=== PATIENT | male | born 1955 | race Caucasian/White ===

== ENCOUNTER → 2019-06-25 | Outpatient (CLI) | payer MEDICARE, BC ==
--- NOTE | 2019-06-27 11:37 | ECHOF ---
Referral Reason:I48.91 A Fib MEASUREMENTS -------- HEIGHT: 182.9 cm WEIGHT: 117.9 kg BP: RVIDd: 3.1 cm (< 3.3) IVSd: 1.4 cm (0.6 - 1.1) LVIDd: 5.4 cm (3.9 - 5.3) LVPWd: 1.5 cm (0.6 - 1.1) IVSs: 1.3 cm LVIDs: 4.8 cm LVPWs: 1.4 cm LA Diam: 4.4 cm (2.7 - 3.8) LAESV Index (A-L): 30.32 ml/m Ao Diam: 3.6 cm (2.0 - 3.7) AV Cusp: 2.2 cm (1.5 - 2.6) LA Diam: 5.2 cm (2.7 - 3.8) MV EXCURSION: 15.662 mm (> 18.000) MV EF SLOPE: 97 mm/s (70 - 150) EPSS: 0.7 cm MV E Kelvin: 0.90 m/s MV DecT: 174 ms MV A Kelvin: 0.02 m/s MV E/A Ratio: 49.04 RAP: 5.00 mmHg RVSP: 29.09 mmHg FINDINGS -------- Atrial fibrillation. This was a technically adequate study. The left ventricular size is normal. There is borderline concentric left ventricular hypertrophy. Overall left ventricular systolic function is low-normal with, an EF between 50 - 55 %. The right ventricle is normal in size. The left atrium is mildly dilated. LA is midly dilated 29-33ml/m2. The right atrial size is normal. There is mild aortic valve sclerosis. There is no evidence of aortic regurgitation. Mild mitral annular calcification present. Mild mitral regurgitation is present. Mild tricuspid regurgitation present. There is no evidence of pulmonary hypertension. The right v entricular systolic pressure, as measured by Doppler, is 29.09mmHg. There is no pulmonic regurgitation present. The aortic root size is normal. There is no pericardial effusion. CONCLUSIONS -------- 1. The left ventricular size is normal. 2. There is borderline concentric left ventricular hypertrophy. 3. Overall left ventricular systolic function is low-normal with, an EF between 50 - 55 %. 4. The right ventricle is normal in size. 5. The left atrium is mildly dilated. 6. LA is midly dilated 29-33ml/m2. 7. The right atrial size is normal. 8. There is mild aortic valve sclerosis. 9. Mild mitral annular calcification present. 10. Mild mitral regurgitation is present. 11. Mild tricuspid regurgitation present. 12. There is no evidence of pulmonary hypertension. 13. The right ventricular systolic pressure, as measured by Doppler, is 29.09mmHg. 14. There is no pulmonic regurgitation present. 15. The aortic root size is normal. 16. There is no pericardial effusion. [employer] OPERATOR: Daysi Roldan RDCS
== END | disposition home or self-care (01) ==
LOC: RADECHMAIN 14:54
PROVIDERS: ATTEND Internal Medicine
DX: I08.1 Rheumatic disorders of both mitral and tricuspid valves (principal); I48.91 Unspecified atrial fibrillation
CPT/HCPCS: 93306

== ENCOUNTER → 2019-07-31 | Day surgery (SDC) | payer MEDICARE, BC ==
[2019-07-25 12:55] VITALS: BMI 31.6
[~2019-07-31] MED LIST: ALPRAZolam 0.25 MG TAB PO PRN; ALPRAZolam 0.5 MG TAB PO PRN; ASPIRIN 325 MG TAB PO ONE; ATORVASTATIN 80 MG TAB PO ONE; HEPARIN SODIUM 1,000 UN/ML (10ML VL) ONE; IOPAMIDOL-370 100ML BTL INJ ONE; LIDOCAINE 1% INJ 10MG/ML (20 ML MDV) SQ ONE; MIDAZOLAM (PF) 2 MG/2 ML VIAL IV ONE; NITROGLYCERIN SL TABS 0.4 MG TAB SUBLINGUAL PRN; RIVAROXABAN 20 MG TAB PO STA; SODIUM CHLORIDE 0.9% 1,000 ML IV SCH; SODIUM CHLORIDE 0.9% 1,000 ML in EMPTY BAG 1 BAG IV ONE; VERAPAMIL 2.5 MG/ML 2 ML AMP ONE
[2019-07-31 08:24] VITALS: TEMP 97.8
[2019-07-31] MEDS: VERAPAMIL SYRINGE (5 MG/10 ML) INTRAARTER ONE ×2 (09:44→10:01)
[2019-07-31 10:22] VITALS: RESP 16
--- NOTE | 2019-07-31 11:03 | CC ---
CARDIAC CATHETERIZATION REPORT DATE OF SERVICE: 07/31/2019 PROCEDURE: Left heart catheterization and coronary angiography. PERFORMED BY: Dr. Tomas Way. Moderate conscious sedation time was 22 minutes. Patient was administered Versed. His oxygen saturation, hemodynamics and EKG were monitored closely. CLINICAL INFORMATION: Mr. Edwin Melendez is a 63-year-old gentleman with a history of hypertension, hyperlipidemia, and recently diagnosed atrial fibrillation with rate control and on Xarelto 20 mg daily. Because of an abnormal stress test with inferior wall reversible defect. He was advised coronary angiography after due discussion regarding risks, benefits, and options. PROCEDURE NOTE: Under local anesthesia and strict aseptic precautions, a 6-Nepali introducer was placed in the right radial artery. I used a JL3.5 and JR4.0 diagnostic catheters to perform coronary angiography and the same right catheter was used to check LV pressures. LV gram was not performed. The sheath was taken out and a large TR band applied as per protocol with good hemostasis and saturation of the fingers of the right hand was 93%. The patient tolerated procedure well without complications. Results were discussed with the patient and family. CARDIAC CATHETERIZATION FINDINGS: The left ventricular end-diastolic pressure was 14 mmHg without any gradient across the aortic valve. CORONARY ANGIOGRAPHY FINDINGS: RIGHT CORONARY ARTERY: This is technically a dominant vessel of good caliber and distribution. It distally bifurcates into 2 branches and gives off an AV kenyetta branch, which is quite large and runs all the way superiorly. The distal branch of the RCA and RCA itself has about 30% to 35% narrowing without any significant disease. LEFT MAIN CORONARY ARTERY: This is a long vessel. No significant disease. There is mild calcification. It bifurcates into LAD and circumflex. LEFT ANTERIOR DESCENDING CORONARY ARTERY: Good caliber vessel, heavy calcification in the proximal 1/3. Gives off a large diagonal branch. It has minor irregularities. No significant disease. The LAD runs all the way to the apex, curves over the apex to supply the inferoapical portion of left ventricle. The entire LAD system has moderate calcification, but no significant disease. No more than 30% to 35% narrowing noted. LEFT POSTERIOR CIRCUMFLEX CORONARY ARTERY: Technically nondominant vessel gives off a single obtuse marginal that runs laterally, gives of minor irregularities of about 30% to 35%. No significant disease is noted. FINAL IMPRESSION: This patient has left ventricular end-diastolic pressure of 14 mmHg, no gradient across the aortic valve. He has a right dominant system, has calcified coronary arteries 30% to 40% narrowing. No significant disease. LV gram was not performed. RECOMMENDATIONS: Findings were discussed with the patient and family. Continued medical therapy with risk factor modification advised. He will resume Xarelto today and hopefully will be discharged later on today and I will see him early next week in the office. MMODL / IJN: [id number] /
[2019-07-31 16:02] VITALS: BP 134/80; PULSE 53
== END ==
LOC: CATHCVL 07:57
PROVIDERS: ATTEND Internal Medicine Interventional Cardiology
DX: I25.110 Atherosclerotic heart disease of native coronary artery with unstable angina pectoris (principal); I48.91 Unspecified atrial fibrillation; I10 Essential (primary) hypertension; E66.9 Obesity, unspecified; E78.5 Hyperlipidemia, unspecified; Z79.01 Long term (current) use of anticoagulants; Z79.899 Other long term (current) drug therapy; Z68.31 Body mass index [BMI] 31.0-31.9, adult
CPT/HCPCS: 93458; C1769; C1894; J2001; J1644; Q9967; J2250

== ENCOUNTER → 2019-08-28 | Outpatient (CLI) | payer MEDICARE, BC ==
[2019-08-28 11:34] LABS: HCT 41.7 % (39.0-53.0); HGB 13.4 gm/dL (13.0-17.5); MCH 32.4 pg (25.0-35.0); MCHC 32.1 g/dL (31.0-37.0); MCV 100.8 fL (80.0-100.0); Mean Platelet Volume 6.6; Platelet Count 245 k/uL (150-450); RBC 4.14 m/uL (4.30-5.90); RDW 12.6 % (11.5-15.5); WBC 8.8 k/uL (3.8-10.6)
[2019-08-28 11:54] LABS: African American GFR (CKD) >90 (>60 ml/min/1.73 sqM); Anion Gap 10 mmol/L; Blood Urea Nitrogen 19 mg/dL (9-20); Carbon Dioxide 26 mmol/L (22-30); Chloride 103 mmol/L (98-107); Glucose 164 mg/dL (74-99); Potassium 4.4 mmol/L (3.5-5.1); Sodium 139 mmol/L (137-145)
== END | disposition home or self-care (01) ==
LOC: LABPAT 10:57
PROVIDERS: ATTEND Internal Medicine Interventional Cardiology
DX: Z01.812 Encounter for preprocedural laboratory examination (principal); I25.10 Atherosclerotic heart disease of native coronary artery without angina pectoris; I48.91 Unspecified atrial fibrillation
CPT/HCPCS: 36415; 80051; 82565; 82947; 84520; 85027

== ENCOUNTER 2019-08-29 06:10 | Day surgery (SDC) | payer MEDICARE, BC ==
[2019-08-27 10:17] VITALS: BMI 31.6
[~2019-08-29 06:10] MED LIST changes: -ALPRAZolam 0.25 MG TAB PO PRN; -ALPRAZolam 0.5 MG TAB PO PRN; -ASPIRIN 325 MG TAB PO ONE; -ATORVASTATIN 80 MG TAB PO ONE; -HEPARIN SODIUM 1,000 UN/ML (10ML VL) ONE; -IOPAMIDOL-370 100ML BTL INJ ONE; +LACTATED RINGERS 1,000 ML IV SCH; -LIDOCAINE 1% INJ 10MG/ML (20 ML MDV) SQ ONE; -MIDAZOLAM (PF) 2 MG/2 ML VIAL IV ONE; -NITROGLYCERIN SL TABS 0.4 MG TAB SUBLINGUAL PRN; -RIVAROXABAN 20 MG TAB PO STA; -SODIUM CHLORIDE 0.9% 1,000 ML in EMPTY BAG 1 BAG IV ONE; -VERAPAMIL 2.5 MG/ML 2 ML AMP ONE
[2019-08-29 06:39] VITALS: TEMP 97.8
[2019-08-29] MEDS ORDERED: PROPOFOL 10 MG/ML 20 ML VIAL IV ONE (07:10)
[2019-08-29] MEDS ORDERED: LACTATED RINGERS 1,000 ML IV ONE (07:37)
--- NOTE | 2019-08-29 07:53 | CE ---
CARDIAC ELECTROPHYSIOLOGY REPORT ELECTRICAL CARDIOVERSION NOTE: PROCEDURE: Electrical cardioversion. PERFORMED BY: Dr. Tomas Way. CLINICAL INFORMATION: Mr. Edwin Melendez is a 64-year-old gentleman with moderate noncritical CAD and recent onset atrial fibrillation, which appeared to be persistent in spite of oral medications. He was brought in electively after placing him on Xarelto 20 mg daily for a cardioversion. Risks, benefits, options, rationale were explained. PROCEDURE NOTE: Under the influence of ultra short-acting and intravenous anesthetic agent with the attendance of the anesthesiologist, a single 250 joules synchronized shock was delivered with anterior and posterior patches. He converted to sinus rhythm, remained neurologically intact and hemodynamically stable. This was a successful electrical cardioversion. He will be discharged later on today and I will see him in the office in one week. MMODL / JADN: [id number] /
[2019-08-29 08:29] VITALS: PULSE 52
[2019-08-29 08:53] VITALS: BP 121/69; RESP 16
== END 2019-08-29 08:50 | disposition home or self-care (01) ==
LOC: CATHCVL 06:10
PROVIDERS: ATTEND Internal Medicine Interventional Cardiology
DX: I48.91 Unspecified atrial fibrillation (principal); I10 Essential (primary) hypertension; E78.5 Hyperlipidemia, unspecified; E66.9 Obesity, unspecified; Z79.01 Long term (current) use of anticoagulants; Z79.899 Other long term (current) drug therapy; Z68.31 Body mass index [BMI] 31.0-31.9, adult; K21.9 Gastro-esophageal reflux disease without esophagitis
CPT/HCPCS: 93005; 92960; J2704

== ENCOUNTER → 2019-10-09 | Outpatient (CLI) | payer MEDICARE, BC ==
[2019-10-09 15:23] LABS: HCT 37.9 % (39.0-53.0); MCH 33.7 pg (25.0-35.0); MCHC 34.2 g/dL (31.0-37.0); MCV 98.5 fL (80.0-100.0); Platelet Count 260 k/uL (150-450); RBC 3.85 m/uL (4.30-5.90); RDW 12.3 % (11.5-15.5); WBC 9.6 k/uL (3.8-10.6)
[2019-10-09 15:24] LABS: Potassium 4.5 mmol/L (3.5-5.1)
== END | disposition home or self-care (01) ==
LOC: LABPAT 14:07
PROVIDERS: ATTEND Internal Medicine Interventional Cardiology
DX: Z01.812 Encounter for preprocedural laboratory examination (principal); I25.10 Atherosclerotic heart disease of native coronary artery without angina pectoris
CPT/HCPCS: 36415; 80051; 82565; 82947; 84520; 85027

== ENCOUNTER → 2019-10-14 | Day surgery (SDC) | payer MEDICARE, BC ==
[2019-10-10 16:14] VITALS: BMI 31.0
[~2019-10-14] MED LIST changes: +LIDOCAINE 1% INJ 10MG/ML (20 ML MDV) ONE; +PROPOFOL 10 MG/ML 20 ML VIAL IV ONE
[2019-10-14 06:21] VITALS: TEMP 98.2
--- NOTE | 2019-10-14 07:30 | CE ---
CARDIAC ELECTROPHYSIOLOGY REPORT DATE OF SERVICE: 10/14/2019 PROCEDURE: Electrical cardioversion. INDICATION: Persistent atrial fibrillation with previously unsuccessful electrical cardioversion. CLINICAL INFORMATION: Mr. Melendez is a gentleman with a nonischemic cardiomyopathy-type picture, ejection fraction of 45%-50% with evidence of recurrent persistent atrial fibrillation. He had an electrical cardioversion performed in the past, but had a recurrence of atrial fibrillation. He was then placed on amiodarone 200 mg b.i.d. and brought in for the procedure electively. The risks, benefits, options and rationale were explained. PROCEDURE NOTE: Under the influence of ultra short-acting intravenous anesthetic agent with the attendance of the anesthesiologist, a single 250 joule shock was delivered with anterior and posterior patches. Patient converted to sinus rhythm, remained hemodynamically stable and neurologically intact. This was a successful electrical cardioversion. Results were discussed with the patient and family. He will continue his current medical regimen. MMODL / IJN: [id number] /
[2019-10-14 07:35] VITALS: RESP 16
[2019-10-14 08:45] VITALS: BP 117/72; PULSE 54
== END ==
LOC: CATHCVL 05:55
PROVIDERS: ATTEND Internal Medicine Interventional Cardiology
DX: I48.19 Other persistent atrial fibrillation (principal); E78.2 Mixed hyperlipidemia; I10 Essential (primary) hypertension; I25.10 Atherosclerotic heart disease of native coronary artery without angina pectoris; K21.9 Gastro-esophageal reflux disease without esophagitis; E66.9 Obesity, unspecified; Z68.31 Body mass index [BMI] 31.0-31.9, adult; Z79.01 Long term (current) use of anticoagulants; Z79.899 Other long term (current) drug therapy
CPT/HCPCS: 92960; J2001; J2704

== ENCOUNTER → 2022-09-29 | Outpatient (CLI) | payer MEDICARE, BC ==
--- NOTE | 2022-09-29 10:36 | XR ---
EXAMINATION TYPE: XR chest 2V DATE OF EXAM: 09/29/2022 10:24 AM COMPARISON: None TECHNIQUE: XR chest 2V Frontal and lateral views of the chest. CLINICAL INDICATION:Male, 67 years old with history of I48.91 A FIB; FINDINGS: Lungs/Pleura: There is no evidence of pleural effusion, focal consolidation, or pneumothorax. Pulmonary vascularity: Unremarkable. Heart/mediastinum: Cardiomediastinal silhouette is unremarkable. Musculoskeletal: No acute osseous pathology. IMPRESSION: No acute cardiopulmonary disease/process.
[2022-09-29 17:32] LABS: HCT 39.5 % (39.6-50.0); MCHC 32.9 g/dL (32.0-37.0); MCV 103.4 fL (80.0-97.0); Mean Platelet Volume 10.5 fL (9.5-12.2); NRBC Per 100 WBC 0 /100 WBCS (0.0-0.0); Platelet Count 328 X 10*3/uL (140-440); RBC 3.82 X 10*6/uL (4.40-5.60); RDW 11.8 % (11.5-14.5); WBC 10.17 X 10*3/uL (4.50-10.00)
[2022-09-29 17:59] LABS: African American GFR (CKD) 83.5 (60.0-200.0); Albumin 4.3 g/dL (3.8-4.9); Albumin/Globulin Ratio 1.76 (1.60-3.17); Anion Gap 10.4 mmol/L (10.00-18.00); BUN/Creat Ratio 15.33 Ratio (12.00-20.00); Blood Urea Nitrogen 16.1 mg/dL (9.0-27.0); Calcium 9.4 mg/dL (8.7-10.3); Globulin 2.4 g/dL (1.6-3.3); Non-African American GFR(CKD) 72.1 (60.0-200.0); Potassium 4.9 mmol/L (3.5-5.5); T4, Free (Free Thyroxine) 1.31 ng/dL (0.800-1.800); Total Bilirubin 0.7 mg/dL (0.30-1.20); Total Protein 6.7 g/dL (6.2-8.2)
== END | disposition home or self-care (01) ==
LOC: LABWHC1 09:51
PROVIDERS: ATTEND Internal Medicine Clinical Cardiac Electrophysiology
DX: I48.91 Unspecified atrial fibrillation (principal); I42.9 Cardiomyopathy, unspecified
CPT/HCPCS: 36415; 71046; 80053; 84439; 84443; 85027

== ENCOUNTER 2022-10-31 07:55 | Day surgery (SDC) | payer MEDICARE, BC ==
[2022-10-27 10:08] VITALS: BMI 30.4
[~2022-10-31 07:55] MED LIST changes: +DEXAMETHASONE SOD PHOSPHATE 4 MG/ML 1 ML VIAL IV ONE; +HYDROmorphone 0.5 MG/0.5 ML SYRINGE IVP PRN; -LIDOCAINE 1% INJ 10MG/ML (20 ML MDV) ONE; +ONDANSETRON 4 MG/2 ML VIAL IVP ONE; -PROPOFOL 10 MG/ML 20 ML VIAL IV ONE
[2022-10-31] MEDS ORDERED: SODIUM CHLORIDE 0.9% 1,000 ML IV ONE (08:24)
[2022-10-31 08:39] LABS: Basophils # (A) 0.1 k/uL (0-0.2); Basophils % (A) 1 %; Eosinophils # (A) 0.3 k/uL (0-0.7); Eosinophils % (A) 4 %; HCT 38.9 % (39.0-53.0); HGB 13.6 gm/dL (13.0-17.5); Lymphocytes # (A) 2.1 k/uL (1.0-4.8); Lymphocytes % (A) 24 %; MCH 34.2 pg (25.0-35.0); MCHC 34.9 g/dL (31.0-37.0); MCV 97.9 fL (80.0-100.0); Mean Platelet Volume 7.6; Monocytes # (A) 0.5 k/uL (0-1.0); Monocytes % (A) 6 %; Neutrophils # (A) 5.5 k/uL (1.3-7.7); Neutrophils % (A) 64 %; Platelet Count 272 k/uL (150-450); RBC 3.97 m/uL (4.30-5.90); RDW 11.5 % (11.5-15.5); WBC 8.6 k/uL (3.8-10.6)
[2022-10-31 08:59] LABS: African American GFR (CKD) >90 (>60 ml/min/1.73 sqM); Anion Gap 6 mmol/L; Blood Urea Nitrogen 15 mg/dL (9-20); Calcium 9.1 mg/dL (8.4-10.2); Carbon Dioxide 27 mmol/L (22-30); Chloride 107 mmol/L (98-107); Glucose 118 mg/dL (74-99); Non-African American GFR(CKD) >90 (>60 ml/min/1.73 sqM); Potassium 4.2 mmol/L (3.5-5.1); Sodium 140 mmol/L (137-145)
[2022-10-31] MEDS ORDERED: LIDOCAINE 2% INJ 20 MG/ML (2 ML VIAL) ONE (10:02)
[2022-10-31] MEDS ORDERED: MIDAZOLAM 2 MG/2 ML VIAL ONE (10:02)
[2022-10-31] MEDS ORDERED: SUCCINYLCHOLINE CHLORIDE 200 MG/10 ML VIAL IV ONE (10:02)
[2022-10-31] MEDS ORDERED: PHENYLEPHRINE-0.9% NACL SYG 1,000 MCG/10 ML SYRINGE ONE (10:02)
[2022-10-31] MEDS ORDERED: fentaNYL (PF) 50 MCG/ML 2 ML AMP ONE (10:02)
[2022-10-31] MEDS ORDERED: HEPARIN SODIUM,PORCINE 10,000 UNIT/ML 1 ML VIAL ONE (10:02)
[2022-10-31] MEDS ORDERED: PROPOFOL 10 MG/ML 20 ML VIAL IV ONE (10:02)
[2022-10-31] MEDS ORDERED: HEPARIN SOD,PORK IN 0.45% NACL 25,000 UNIT in 0.45% NACL 1 250ML.BAG IV ONE (10:30)
[2022-10-31] MEDS ORDERED: LIDOCAINE 1% INJ 10MG/ML (30 ML VIAL-PF) SQ ONE (10:45)
[2022-10-31] MEDS ORDERED: IOPAMIDOL-370 100ML BTL MISCELLANE ONE (12:10)
[2022-10-31] MEDS ORDERED: ACETAMINOPHEN TAB 325 MG TAB PO PRN (12:52)
--- NOTE | 2022-10-31 13:01 | P.HPCAR ---
History of Present Illness This is Dr. Ray dictating an H/P on this patient The patient was interviewed and examined IMPRESSION / ASSESSMENT: Persistent atrial fibrillation since 2019 Failed medical treatment and electrical cardioversions Complains of palpitations tightness fatigue and shortness of breath Mild cardiomyopathy ejection fraction 45% Normal stress test PLAN: A. fib ablation with PVI and linear ablation of the left atrium Continue Xarelto Reassess LV function after 6-8 weeks of ablation HPI Patient continues to complain of palpitations and tiredness and fatigue He also complains shortness of breath His symptoms have persisted despite adequate rate control of atrial fibrillation In the last one to 2 weeks there is no orthopnea PND chest discomfort last of consciousness or dizziness No fever chills ROS: No fever chills or rigors, no cough, phlegm or expectoration, no nausea, vomiting or diarrhea, no hematuria, dysuria, no musculoskeletal complaints, no strokes or seizures, no skin lesions. EXAMINATION: Afebrile 97.2F blood pressure 144/90 and his mercury pulse ox 96% Breath sounds are reduced bilaterally No JVD. No lower extremity edema line rhythm is irregular no murmurs REVIEW OF LABS, ECG & MEDICAL DATA White count 13.6 Normal electrolytes Normal renal function Physical Exam Vitals: Vital Signs Temp Pulse Resp BP Pulse Ox 10/31/22 08:30 97.2 F L 75 16 144/90 96 Intake and Output 10/30/22 10/31/22 10/31/22 22:59 06:59 14:59 Intake Total 826 Balance 826 Intake: IV 826 Other: Weight 113.3 kg Past Medical History Past Medical History: Atrial Fibrillation, GERD/Reflux, Hyperlipidemia, Hypertension Additional Past Medical History / Comment(s): SEE DR RAY'S H&P History of Any Multi-Drug Resistant Organisms: None Reported Past Surgical History: Heart Catheterization, Orthopedic Surgery Additional Past Surgical History / Comment(s): "Hiatal hernia balloon procedure." Bilateral shoulder surgery. Past Anesthesia/Blood Transfusion Reactions: No Reported Reaction Past Psychological History: No Psychological Hx Reported Smoking Status: Never smoker Past Alcohol Use History: Occasional Past Drug Use History: None Reported - Past Family History Father Family Medical History: Cancer Additional Family Medical History / Comment(s): Lung Cancer. Physical Examination Vital Signs Temp Pulse Resp BP Pulse Ox 10/31/22 08:30 97.2 F L 75 16 144/90 96 Intake and Output 10/30/22 10/31/22 10/31/22 22:59 06:59 14:59 Intake Total 826 Balance 826 Intake: IV 826 Other: Weight 113.3 kg Results 10/31/22 08:25 10/31/22 08:25 CBC 10/31/22 Range/Units 08:25 WBC 8.6 (3.8-10.6) k/uL RBC 3.97 L (4.30-5.90) m/uL Hgb 13.6 (13.0-17.5) gm/dL Hct 38.9 L (39.0-53.0) % Plt Count 272 (150-450) k/uL Comprehensive Metabolic Panel 10/31/22 Range/Units 08:25 Sodium 140 (137-145) mmol/L Potassium 4.2 (3.5-5.1) mmol/L Chloride 107 (98-107) mmol/L Carbon Dioxide 27 (22-30) mmol/L BUN 15 (9-20) mg/dL Creatinine 0.82 (0.66-1.25) mg/dL Glucose 118 H (74-99) mg/dL Calcium 9.1 (8.4-10.2) mg/dL Current Medications Generic Name Dose Route Start Last Admin Trade Name Freq PRN Reason Stop Dose Admin Acetaminophen 650 mg 10/31/22 12:52 Acetaminophen Tab 325 Mg Tab PO Q6HR PRN Mild Pain (Scale 1 to 3) Atorvastatin Calcium 40 mg 11/01/22 09:00 Atorvastatin 40 Mg Tab PO DAILY [facility] Lisinopril/HCTZ 1 each 11/01/22 09:00 Lisinopril-Hctz 20-25 Mg 1 Each Tab PO DAILY LUBNA Hydromorphone HCl 0.5 mg 10/31/22 06:28 Hydromorphone 0.5 Mg/0.5 Ml Syringe IVP 10/31/22 23:00 Q5M PRN Phase 1 or 2 - Pain Control Acetaminophen 1,000 mg/ IV 100 mls @ 400 mls/hr 10/31/22 12:52 Solution IVPB 10/31/22 13:06 ONCE ONE Pantoprazole Sodium 40 mg 11/01/22 07:30 Pantoprazole 40 Mg Tablet PO AC-BRKFST LUBNA Rivaroxaban 20 mg 10/31/22 21:00 Rivaroxaban 20 Mg Tab PO HS LUBNA Protocol Sodium Chloride 12 ml 10/31/22 12:52 Sodium Chloride 0.9% Flush 10 Ml Syringe IV Q12HR PRN Line Flush Intake and Output 10/30/22 10/31/22 10/31/22 22:59 06:59 14:59 Intake Total 826 Balance 826 Intake: IV 826 Other: Weight 113.3 kg Patient Weight 11/01/22 06:59 Weight 113.3 kg 10/31/22 08:25 10/31/22 08:25
--- NOTE | 2022-10-31 13:05 | P.EPPROC ---
- EP Procedure Note Electrophysiology Procedure Note: PROCEDURE A. fib ablation with PVI, left atrial septal ablation and left atrial roof ablation DIAGNOSIS Persistent Atrial fibrillation, symptomatic, refractory to therapy RESULT No left atrial appendage mass seen on intracardiac echo Successful A. fib ablation/pulmonary vein isolation of all veins using cryo- ablation Complete entrance block in all 4 veins confirmed No evidence for phrenic nerve injury Left atrial septal ablation Left atrial roof ablation, linear Esophageal deflection YES, left-sided esophagus Electrical cardioversion with a synchronized shock across the chest YES PROCEDURE DETAILS Patient was brought to the EP lab in a fasting state after obtaining written i nformed consent. Procedure performed under general anesthesia Esophagus was intubated. Esophageal temperature monitoring with circa catheter. Esophageal deflection with an endoscope to avoid hypothermia of the esophagus. After initial muscle relaxant use, muscle relaxants were not given thereafter in order to assess phrenic nerve during procedure. Patient prepped and draped as per protocol Cryo ablation-set up with standard preparation of the cryoablation tools done. Femoral Venous access obtained on the right and left groins and sheaths placed Diagnostic catheters for the high right atrium, phrenic nerve stimulation and pacing, His bundle, coronary sinus placed Intracardiac echo catheter placed. Long sheath placed in the right atrium Left and right transseptal catheterization performed under intracardiac echo guidance. Intravenous heparin with aCT above 300 Later, catheter positioning and balloon positioning in the left atrium and pulmonary veins, under intracardiac echo guidance Diagnostic EP study with coronary sinus pacing and recording Baseline measurements: QRS 96 ms, QT 433 ms, PA interval 195 ms HV 37 ms Transseptal catheterization performed RA pressure 16/12/14 LA pressure 18/11/15 Transseptal catheterization performed with standard sheath. The cryoablation sheath was then placed with an over the wire exchange without any acute complications. The cryoablation balloon was placed in the office of each pulmonary vein and all 4 pulmonary veins were isolated. IV dye was injected to confirm occlusion. Goal: achieve complete occlusion of the pulmonary vein, achieve -30 degrees C at 30 seconds and achieve -40 degrees C at 60 seconds and a time to effect of less than 60 seconds. If not, the balloon was repositioned to obtain this result After completion of Cryoblation with durations from 180-240 seconds, entrance block was confirmed with the Attain circular catheter in a roving fashion around the antrum of the pulmonary veins Phrenic nerve pacing was performed from the SVC, right innominate vein area and diaphragm voltage was monitored. Diaphragmatic contractions were also monitored manually for strength of contraction. At the end of the procedure the Achieve catheter was once again used to check for entrance block Phrenic nerve stimulation was performed to confirm diaphragmatic stimulation the end of the procedure Cine fluoroscopy was performed at the very end of the procedure to confirm movement of both diaphragms with inspiration and expiration Left atrial septal ablation was performed and termination in electrograms amplitude noted, significant Left atrial roof ablation performed with cryptic was cryoablation lesions, overlapping At the end of the procedure the patient was extubated Venous sheaths were removed and hemostasis assured with a closure device PROCEDURES PERFORMED Diagnostic EP study CS pacing and recording Left and right transseptal catheterization Catheter the mapping of the tachycardia Intracardiac echocardiography Pulmonary vein isolation with transseptal and comprehensive EPS, [id number] Left atrial roof line, +[id number] Linear ablation, left atrium, +[id number] Electrical cardioversion with a synchronized shock across the chest [id number]
[2022-10-31] MEDS: ACETAMINOPHEN IV (For NPO) 1,000 MG in EMPTY BAG 1 BAG IVPB ONE ×2 (13:29→13:58)
[2022-10-31] MEDS ORDERED: RIVAROXABAN 20 MG TAB PO SCH (21:00)
[2022-11-01] MEDS ORDERED: PANTOPRAZOLE 40 MG TABLET PO SCH (07:30)
[2022-11-01 08:07] VITALS: BP 148/86; PULSE 74; RESP 17; TEMP 98.1
[2022-11-01] MEDS ORDERED: LISINOPRIL-HCTZ 20-25 MG 1 EACH TAB PO SCH (09:00)
[2022-11-01] MEDS ORDERED: ATORVASTATIN 40 MG TAB PO SCH (09:00)
--- NOTE | 2022-11-01 11:03 | P.DS ---
Providers Attending physician: Mello Ray Primary care physician: Stated None Hospital Course: Patient is resting comfortably in bed Minimum groin tenderness Mild sore throat They mild chest discomfort on deep inspiration Looks comfortable in no distress Heart sounds S1 and S2 are normal Breath sounds are clear No JVD No hematoma in the groins Impression persistent symptomatically atrial fibrillation with associated cardiomyopathy Status post A. fib ablation with pulmonary vein isolation, left atrial roof ablation and left atrial septal ablation yesterday Doing well maintains sinus rhythm On anticoagulation Suggest Continue antihypertensive therapy Continue xarelto Continue statins Follow-up with Dr. Way in about a week on November 08 Plan - Discharge Summary Discharge Rx Participant: No New Discharge Prescriptions: No Action Rivaroxaban [Xarelto] 20 mg PO HS Lisinopril-Hctz 20-25 mg [Zestoretic 20-25] 1 tab PO DAILY Atorvastatin [Lipitor] 40 mg PO DAILY Omeprazole 20 mg PO DAILY Metoprolol Tartrate 25 mg PO DAILY Discharge Medication List Atorvastatin [Lipitor] 40 mg PO DAILY 07/25/19 [History] Lisinopril-Hctz 20-25 mg [Zestoretic 20-25] 1 tab PO DAILY 07/25/19 [History] Metoprolol Tartrate 25 mg PO DAILY 07/25/19 [History] Omeprazole 20 mg PO DAILY 07/25/19 [History] Rivaroxaban [Xarelto] 20 mg PO HS 07/25/19 [History]
== END 2022-11-01 12:10 | disposition home or self-care (01) ==
LOC: CATHEP 07:55 → 6NMEDSUR 12:40 → CATHEP 11-01 12:10
PROVIDERS: ATTEND Internal Medicine Clinical Cardiac Electrophysiology
DX: I48.0 Paroxysmal atrial fibrillation (principal); E78.5 Hyperlipidemia, unspecified; I10 Essential (primary) hypertension; I42.9 Cardiomyopathy, unspecified; I48.91 Unspecified atrial fibrillation; K21.9 Gastro-esophageal reflux disease without esophagitis; R07.89 Other chest pain; Z79.01 Long term (current) use of anticoagulants; Z79.899 Other long term (current) drug therapy; Z80.1 Family history of malignant neoplasm of trachea, bronchus and lung
CPT/HCPCS: 92960; 93656; 93657; 80048; 85025; C1894 ×2; C1769 ×3; C1760; C1730 ×2; C1759; C1893; C1733; C1766; J2250; J0330; J1644 ×2; J2001 ×2; J3010; J0131; J2370; J2704; Q9967

== ENCOUNTER → 2025-04-09 | Outpatient (CLI) | payer MEDICARE, BC ==
[2025-04-09 10:16] LABS: HCT 24.6 % (39.6-50.0); HGB 7.2 g/dL (13.0-17.0); MCH 23.2 pg (27.0-32.0); MCHC 29.3 g/dL (32.0-37.0); MCV 79.1 FL (80.0-97.0); Mean Platelet Volume 9.2 FL (9.5-12.2); NRBC Per 100 WBC 0 X 10*3/uL (0.00-0.01); Platelet Count 389 X 10*3/uL (140-440); RBC 3.11 X 10*6/uL (4.40-5.60); RDW 15.3 % (11.5-14.5); WBC 8.45 X 10*3/uL (4.50-10.00)
[2025-04-09 16:35] LABS: Blood Urea Nitrogen 18.8 mg/dL (9.0-27.0); Carbon Dioxide 24.1 mmol/L (21.6-31.8); Chloride 97 mmol/L (96-109); Sodium 133 mmol/L (135-145)
== END | disposition home or self-care (01) ==
LOC: LABPAT 08:16
PROVIDERS: ATTEND Internal Medicine Clinical Cardiac Electrophysiology
DX: Z01.812 Encounter for preprocedural laboratory examination (principal); I48.19 Other persistent atrial fibrillation
CPT/HCPCS: 80051; 82565; 84520; 85027

== ENCOUNTER 2025-04-13 07:40 | Day surgery (SDC) | payer MEDICARE, BC ==
[2025-04-09 14:36] VITALS: BMI 33.5
[~2025-04-13 07:40] MED LIST changes: -DEXAMETHASONE SOD PHOSPHATE 4 MG/ML 1 ML VIAL IV ONE; -HYDROmorphone 0.5 MG/0.5 ML SYRINGE IVP PRN; -ONDANSETRON 4 MG/2 ML VIAL IVP ONE; -SODIUM CHLORIDE 0.9% 1,000 ML IV SCH
[2025-04-13] MEDS ORDERED: SODIUM CHLORIDE 0.9% 1,000 ML IV SCH (08:13)
[2025-04-13 08:18] VITALS: RESP 16; TEMP 97.9
[2025-04-13 08:43] LABS: ALT 30 U/L (4-49); AST 34 U/L (17-59); African American GFR (CKD) 74 (>60 ml/min/1.73 sqM); Albumin 4.2 g/dL (3.5-5.0); Alkaline Phosphatase 78 U/L (38-126); Anion Gap 10 mmol/L; Blood Urea Nitrogen 24 mg/dL (9-20); Calcium 9.3 mg/dL (8.4-10.2); Carbon Dioxide 26 mmol/L (22-30); Chloride 94 mmol/L (98-107); Glucose 123 mg/dL (74-99); Non-African American GFR(CKD) 64 (>60 ml/min/1.73 sqM); Sodium 130 mmol/L (137-145); Total Bilirubin 0.9 mg/dL (0.2-1.3)
[2025-04-13] MEDS ORDERED: PROPOFOL 10 MG/ML 20 ML VIAL IV ONE (09:21)
[2025-04-13] MEDS: IV FLUID CONTINUATION 500 ML IV ONE (09:41)
--- NOTE | 2025-04-13 09:58 | P.HPCAR ---
History of Present Illness This is Dr. Ray dictating an H/P on this patient The patient was interviewed and examined IMPRESSION / ASSESSMENT: Persistent symptomatic atrial fibrillation with tiredness and fatigue Status post A-fib ablation in 2021 with PVI, left atrial roof ablation and septal ablation Mild to moderate mitral regurgitation Mild aortic stenosis Lexiscan Cardiolite stress test did not show any evidence for ischemia Preserved systolic function during atrial fibrillation Started on flecainide 100 mg twice daily, asked to continue anticoagulation PLAN: Electrical cardioversion on flecainide Reassessment of metoprolol dose Continue antihypertensive therapy and statins and anticoagulation HPI Patient continues to complain of tiredness and fatigue and lack of energy. No dizziness no loss of consciousness no chest pain Remains in atrial fibrillation ROS: No fever chills or rigors, no cough, phlegm or expectoration, no nausea, vomiting or diarrhea, no hematuria, dysuria, no musculoskeletal complaints, no strokes or seizures, no skin lesions. EXAMINATION: Blood pressure 140/73 mmHg respiration 16 pulse rate in the 60s afebrile Heart sounds irregular rates are controlled Breath sounds are clear No rhonchi no crackles REVIEW OF LABS, ECG & MEDICAL DATA Sodium 130 potassium 5.0 BUN 24 creatinine 1.2 Liver function normal TSH normal at 2.3 Physical Exam Vitals: Vital Signs Temp Pulse Resp BP Pulse Ox 04/13/25 08:16 97.9 F 67 16 140/73 96 Intake and Output 04/12/25 04/13/25 04/13/25 22:59 06:59 14:59 Intake Total 300 Balance 300 Intake: IV 300 Other: Weight 126 kg Past Medical History Past Medical History: Atrial Fibrillation, GERD/Reflux, Hyperlipidemia, Hypertension Additional Past Medical History / Comment(s): SEE DR RAY'S H&P History of Any Multi-Drug Resistant Organisms: None Reported Past Surgical History: Heart Catheterization, Orthopedic Surgery Additional Past Surgical History / Comment(s): "Hiatal hernia balloon procedure." Right shoulder surgery. Afib ablation Past Anesthesia/Blood Transfusion Reactions: No Reported Reaction Additional Past Anesthesia/Blood Transfusion Reaction / Comment(s): No hx of blood transfusion Smoking Status: Never smoker - Past Family History Father Family Medical History: Cancer Additional Family Medical History / Comment(s): Lung Cancer. Physical Examination Vital Signs Temp Pulse Resp BP Pulse Ox 04/13/25 08:16 97.9 F 67 16 140/73 96 Intake and Output 04/12/25 04/13/25 04/13/25 22:59 06:59 14:59 Intake Total 300 Balance 300 Intake: IV 300 Other: Weight 126 kg Results 04/13/25 08:00 Cardiac Enzymes 04/13/25 Range/Units 08:00 AST 34 (17-59) U/L Comprehensive Metabolic Panel 04/13/25 Range/Units 08:00 Sodium 130 L (137-145) mmol/L Potassium 5.0 (3.5-5.1) mmol/L Chloride 94 L (98-107) mmol/L Carbon Dioxide 26 (22-30) mmol/L BUN 24 H (9-20) mg/dL Creatinine 1.15 (0.66-1.25) mg/dL Glucose 123 H (74-99) mg/dL Calcium 9.3 (8.4-10.2) mg/dL AST 34 (17-59) U/L ALT 30 (4-49) U/L Alkaline Phosphatase 78 (38-126) U/L Total Protein 7.0 (6.3-8.2) g/dL Albumin 4.2 (3.5-5.0) g/dL Current Medications Generic Name Dose Route Start Last Admin Trade Name Freq PRN Reason Stop Dose Admin Lactated Ringer's 1,000 mls @ 20 mls/hr 04/13/25 06:29 Lactated Ringers IV 05/13/25 06:28 .Q24H LUBNA Sodium Chloride 1,000 mls @ 20 mls/hr 04/13/25 08:13 Saline 0.9% IV 05/13/25 08:12 .Q24H LUBNA Intake and Output 04/12/25 04/13/25 04/13/25 22:59 06:59 14:59 Intake Total 300 Balance 300 Intake: IV 300 Other: Weight 126 kg Patient Weight 04/14/25 06:59 Weight 126 kg 04/13/25 08:00
--- NOTE | 2025-04-13 10:11 | P.EPPROC ---
- EP Procedure Note Electrophysiology Procedure Note: Diagnosis Persistent symptomatic atrial fibrillation Previous history of A-fib ablation in 2021 with PVI and left atrial roof ablation Procedure Successful electrical cardioversion to sinus rhythm in the 50s Plan Continue flecainide 100 mg twice daily, continue Xarelto Continue antihypertensive therapy Stop metoprolol tartrate Start metoprolol succinate 25 mg in the morning Follow-up with Dr. Ray in 6 weeks
[2025-04-13 19:19] VITALS: BP 126/67; PULSE 61
== END 2025-04-13 11:13 | disposition home or self-care (01) ==
LOC: CATHEP 07:40
PROVIDERS: ATTEND Internal Medicine Clinical Cardiac Electrophysiology
DX: I48.19 Other persistent atrial fibrillation (principal); E78.5 Hyperlipidemia, unspecified; I10 Essential (primary) hypertension; Z79.01 Long term (current) use of anticoagulants
CPT/HCPCS: 92960; 80053; 84443; J2704

== ENCOUNTER 2025-06-18 08:56 | Inpatient (IN) | payer MEDICARE, BC ==
[2025-06-18 09:50] LABS: Basophils # (A) 0.05 10*3/uL (0.00-0.10); Basophils % (A) 0.6 %; Eosinophils # (A) 0.19 10*3/uL (0.04-0.35); Eosinophils % (A) 2.3 %; Lymphocytes # (A) 1.91 10*3/uL (0.90-5.00); Lymphocytes % (A) 23.1 %; MCH 22.5 pg (27.0-32.0); MCHC 30.7 g/dL (32.0-37.0); MCV 73.3 fL (80.0-97.0); Monocytes # (A) 0.77 10*3/uL (0.20-1.00); Monocytes % (A) 9.3 %; Neutrophils # (A) 5.33 10*3/uL (1.80-7.70); Neutrophils % (A) 64.3 %; Platelet Count 373 10*3/uL (140-440); RBC 2.62 10*6/uL (4.40-5.60); RDW 16.8 % (11.5-14.5); WBC 8.28 10*3/uL (4.50-10.00)
[2025-06-18 09:55] LABS: HCT 19.2 % (39.6-50.0); HGB 5.9 g/dL (13.0-17.0)
[2025-06-18 10:00] LABS: INR 0.9 (<1.2); Partial Thromboplastin Time 22.1 sec (22.0-30.0); Prothrombin Time 10.5 sec (10.0-12.5)
--- NOTE | 2025-06-18 10:03 | ED ---
Recheck HPI - General Chief Complaint: Recheck/Abnormal Lab/Rx Stated Complaint: Abn Labs Time Seen by Provider: 06/18/25 09:10 Source: patient Mode of arrival: EMS Limitations: no limitations - History of Present Illness Initial Comments: 69-year-old male who presents to the emergency department under the direction of his heart doctor. Patient was supposed to have a heart cath today. He had laboratory testing done yesterday. They called him today to let him know that his hemoglobin was low when he had to come to the hospital. Patient admits that in the past he was diagnosed with iron deficiency but he has not taken his iron supplements in a significant period of time. He also admits to some darker stools a couple of weeks ago. He does admit that he has been short of breath and weak for several months and this is why they are doing the heart cath. He denies having any chest pain. Patient does take Xarelto for history of A-fib. He denies any abdominal pain. No hematuria. No other alleviating, precipitating or modifying factors. - Related Data Home Medications Medication Instructions Recorded Confirmed Atorvastatin [Lipitor] 40 mg PO DAILY 07/25/19 06/18/25 Lisinopril-Hctz 20-25 mg 1 tab PO DAILY 07/25/19 06/18/25 [Zestoretic 20-25] Omeprazole 20 mg PO DAILY 07/25/19 06/18/25 Rivaroxaban [Xarelto] 20 mg PO HS 07/25/19 06/18/25 Metoprolol Succinate [Metoprolol 25 mg PO DAILY 06/16/25 06/18/25 Succinate ER] Aspirin 81 mg PO ONCE 06/18/25 06/18/25 Flecainide Acetate [Tambocor] 50 mg PO BID 06/18/25 06/18/25 Ubidecarenone [Coenzyme Q10] 200 mg PO DAILY 06/18/25 06/18/25 Allergies Allergy/AdvReac Type Severity Reaction Status Date / Time No Known Allergies Allergy Verified 06/18/25 11:18 Review of Systems ROS Statement: Those systems with pertinent positive or pertinent negative responses have been documented in the HPI. ROS Other: All systems not noted in ROS Statement are negative. Past Medical History Past Medical History: Atrial Fibrillation, GERD/Reflux, Hyperlipidemia, Hypertension Additional Past Medical History / Comment(s): SEE DR JACKSON'S H&P History of Any Multi-Drug Resistant Organisms: None Reported Past Surgical History: Heart Catheterization, Orthopedic Surgery Additional Past Surgical History / Comment(s): "Hiatal hernia balloon procedure." Right shoulder surgery. Cardioversion March 2025 Past Anesthesia/Blood Transfusion Reactions: No Reported Reaction Additional Past Anesthesia/Blood Transfusion Reaction / Comment(s): No hx of blood transfusion Past Psychological History: No Psychological Hx Reported Smoking Status: Never smoker Past Alcohol Use History: None Reported Past Drug Use History: None Reported - Past Family History Father Family Medical History: Cancer Additional Family Medical History / Comment(s): Lung Cancer. General Exam Limitations: no limitations General appearance: alert, in no apparent distress Head exam: Present: atraumatic, normocephalic, normal inspection Eye exam: Present: normal appearance, PERRL, EOMI. Absent: scleral icterus, conjunctival injection, periorbital swelling ENT exam: Present: normal exam, mucous membranes moist Neck exam: Present: normal inspection. Absent: tenderness, meningismus, lymphadenopathy Respiratory exam: Present: normal lung sounds bilaterally. Absent: respiratory distress, wheezes, rales, rhonchi, stridor Cardiovascular Exam: Present: regular rate, normal rhythm, normal heart sounds. Absent: systolic murmur, diastolic murmur, rubs, gallop, clicks GI/Abdominal exam: Present: soft, normal bowel sounds. Absent: distended, tenderness, guarding, rebound, rigid Extremities exam: Present: normal inspection, full ROM, normal capillary refill. Absent: tenderness, pedal edema, joint swelling, calf tenderness Back exam: Present: normal inspection Neurological exam: Present: alert, oriented X3, CN II-XII intact Psychiatric exam: Present: normal affect, normal mood Skin exam: Present: warm, dry, intact, normal color. Absent: rash Course Vital Signs 06/18/25 06/18/25 06/18/25 09:07 09:40 11:22 Temperature 98.1 F 98.2 F Pulse Rate 59 L 59 L Pulse Rate [ 59 L Press Assistant ] Respiratory 18 20 Rate Blood Pressure 135/63 134/65 O2 Sat by Pulse 98 98 Oximetry 06/18/25 11:33 Temperature 98.2 F Pulse Rate 60 Pulse Rate [ Press Assistant ] Respiratory 20 Rate Blood Pressure 131/68 O2 Sat by Pulse 97 Oximetry Medical Decision Making - Medical Decision Making Was pt. sent in by a medical professional or institution (, NICK, PIE FILLER, urgent care, hospital, or alf...) When possible be specific @ -[No] Did you speak to anyone other than the patient for history (EMS, parent, family, police, friend...)? What history was obtained from this source @ -[No] Did you review nursing and triage notes (agree or disagree)? Why? @ -[I reviewed and agree with nursing and triage notes] Were old charts reviewed (outside hosp., previous admission, EMS record, old EKG, old radiological studies, urgent care reports/EKG's, alf records)? Report findings @ -[No old charts were reviewed] Differential Diagnosis (chest pain, altered mental status, abdominal pain women, abdominal pain men, vaginal bleeding, weakness, fever, dyspnea, syncope, headache, dizziness, GI bleed, back pain, seizure, CVA, palpatations, mental health, musculoskeletal)? @ -[not applicable] EKG interpreted by me (3pts min.). @ -Yes which demonstrates sinus bradycardia with a rate of 58. NH interval 228. QRS 126. QTc of 415. No acute ST segment elevations or depressions X-rays interpreted by me (1pt min.). @ -[None done] CT interpreted by me (1pt min.). @ -[None done] U/S interpreted by me (1pt. min.). @ -[None done] What testing was considered but not performed or refused? (CT, X-rays, U/S, labs)? Why? @ -[None] What meds were considered but not given or refused? Why? @ -[None] Did you discuss the management of the patient with other professionals (professionals i.e. , NICK, PIE FILLER, lab, RT, psych nurse, child protective services social worker, shoe coverer, teacher, nuclear officer, geriatric case manager)? Give summary @ -[No] Was smoking cessation discussed for >3mins.? @ -[No] Was critical care preformed (if so, how long)? @ -[No] Were there social determinants of health that impacted care today? How? (Homelessness, low income, unemployed, alcoholism, drug addiction, transportation, low edu. Level, literacy, decrease access to med. care, mcc, rehab)? @ -[No] Was there de-escalation of care discussed even if they declined (Discuss DNR or withdrawal of care, Hospice)? DNR status @ -[No] What co-morbidities impacted this encounter? (DM, HTN, Smoking, COPD, CAD, Cancer, CVA, ARF, Chemo, Hep., AIDS, mental health diagnosis, sleep apnea, morbid obesity)? @ -[None] Was patient admitted / discharged? Hospital course, mention meds given and rou te, prescriptions, significant lab abnormalities, going to OR and other pertinent info. @ -[hospital course] Undiagnosed new problem with uncertain prognosis? @ -[No] Drug Therapy requiring intensive monitoring for toxicity (Heparin, Nitro, Insulin, Cardizem)? @ -[No] Were any procedures done? @ -[No] Diagnosis/symptom? @ -[default] Acute, or Chronic, or Acute on Chronic? @ -[default] Uncomplicated (without systemic symptoms) or Complicated (systemic symptoms)? @ -[default] Side effects of treatment? @ -[No] Exacerbation, Progression, or Severe Exacerbation? @ -[No] Poses a threat to life or bodily function? How? (Chest pain, USA, LA, pneumonia, PE, COPD, DKA, ARF, appy, cholecystitis, CVA, Diverticulitis, Homicidal, Suicidal, threat to staff... and all critical care pts) @ -[No] - Lab Data Result diagrams: 06/18/25 09:37 06/18/25 09:37 Lab Results 06/18/25 06/18/25 06/18/25 Range/Units 09:10 09:31 09:37 WBC 8.28 (4.50-10.00) 10*3/uL RBC 2.62 L (4.40-5.60) 10*6/uL Hgb 5.9 L* (13.0-17.0) g/dL Hct 19.2 L* (39.6-50.0) % MCV 73.3 L (80.0-97.0) fL MCH 22.5 L (27.0-32.0) pg MCHC 30.7 L (32.0-37.0) g/dL Plt Count 373 (140-440) 10*3/uL MPV 8.3 L (9.5-12.2) fL Immature Gran % (Auto) 0.4 % Neutrophils % 64.3 % Lymphocytes % 23.1 % Monocytes % 9.3 % Eosinophils % 2.3 % Basophils % 0.6 % Immature Gran # 0.03 (0.00-0.04) 10*3/uL Neutrophils # 5.33 (1.80-7.70) 10*3/uL Lymphocytes # 1.91 (0.90-5.00) 10*3/uL Monocytes # 0.77 (0.20-1.00) 10*3/uL Eosinophils # 0.19 (0.04-0.35) 10*3/uL Basophils # 0.05 (0.00-0.10) 10*3/uL Manual Slide Review Performed Hypochromasia (manual) Present Anisocytosis (manual) Present PT (10.0-12.5) sec INR (<1.2) APTT (22.0-30.0) sec Sodium (137-145) mmol/L Potassium (3.5-5.1) mmol/L Chloride (98-107) mmol/L Carbon Dioxide (22-30) mmol/L Anion Gap mmol/L BUN (9-20) mg/dL Creatinine (0.66-1.25) mg/dL Est GFR (CKD-EPI)AfAm (>60 ml/min/1.73 sqM) Est GFR (CKD-EPI)NonAf (>60 ml/min/1.73 sqM) Glucose (74-99) mg/dL Calcium (8.4-10.2) mg/dL Magnesium (1.6-2.3) mg/dL Total Bilirubin (0.2-1.3) mg/dL AST (17-59) U/L ALT (4-49) U/L Alkaline Phosphatase (38-126) U/L Troponin I (0.000-0.034) ng/mL Total Protein (6.3-8.2) g/dL Albumin (3.5-5.0) g/dL Stool Occult Blood (Negative) Blood Type A Positive Blood Type Confirm A Positive Blood Type Recheck No Previous Record Bld Type Recheck Status CABO Indicated Antibody Screen NEGATIVE Crossmatch See Detail Spec Expiration Date 06/21/2025 - 233606/18/25 06/18/2525 Range/Units 09:37 09:37 09:37 WBC (4.50-10.00) 10*3/uL RBC (4.40-5.60) 10*6/uL Hgb (13.0-17.0) g/dL Hct (39.6-50.0) % MCV (80.0-97.0) fL MCH (27.0-32.0) pg MCHC (32.0-37.0) g/dL Plt Count (140-440) 10*3/uL MPV (9.5-12.2) fL Immature Gran % (Auto) % Neutrophils % % Lymphocytes % % Monocytes % % Eosinophils % % Basophils % % Immature Gran # (0.00-0.04) 10*3/uL Neutrophils # (1.80-7.70) 10*3/uL Lymphocytes # (0.90-5.00) 10*3/uL Monocytes # (0.20-1.00) 10*3/uL Eosinophils # (0.04-0.35) 10*3/uL Basophils # (0.00-0.10) 10*3/uL Manual Slide Review Hypochromasia (manual) Anisocytosis (manual) PT 10.5 (10.0-12.5) sec INR 0.9 (<1.2) APTT 22.1 (22.0-30.0) sec Sodium 131 L (137-145) mmol/L Potassium 4.7 (3.5-5.1) mmol/L Chloride 98 (98-107) mmol/L Carbon Dioxide 24 (22-30) mmol/L Anion Gap 9 mmol/L BUN 21 H (9-20) mg/dL Creatinine 1.13 (0.66-1.25) mg/dL Est GFR (CKD-EPI)AfAm 76 (>60 ml/min/1.73 sqM) Est GFR (CKD-EPI)NonAf 65 (>60 ml/min/1.73 sqM) Glucose 107 H (74-99) mg/dL Calcium 9.4 (8.4-10.2) mg/dL Magnesium 1.6 (1.6-2.3) mg/dL Total Bilirubin 0.7 (0.2-1.3) mg/dL AST 37 (17-59) U/L ALT 20 (4-49) U/L Alkaline Phosphatase 90 (38-126) U/L Troponin I (0.000-0.034) ng/mL Total Protein 6.6 (6.3-8.2) g/dL Albumin 3.8 (3.5-5.0) g/dL Stool Occult Blood Negative (Negative) Blood Type Blood Type Confirm Blood Type Recheck Bld Type Recheck Status Antibody Screen Crossmatch Spec Expiration Date 06/18/25 Range/Units 09:37 WBC (4.50-10.00) 10*3/uL RBC (4.40-5.60) 10*6/uL Hgb (13.0-17.0) g/dL Hct (39.6-50.0) % MCV (80.0-97.0) fL MCH (27.0-32.0) pg MCHC (32.0-37.0) g/dL Plt Count (140-440) 10*3/uL MPV (9.5-12.2) fL Immature Gran % (Auto) % Neutrophils % % Lymphocytes % % Monocytes % % Eosinophils % % Basophils % % Immature Gran # (0.00-0.04) 10*3/uL Neutrophils # (1.80-7.70) 10*3/uL Lymphocytes # (0.90-5.00) 10*3/uL Monocytes # (0.20-1.00) 10*3/uL Eosinophils # (0.04-0.35) 10*3/uL Basophils # (0.00-0.10) 10*3/uL Manual Slide Review Hypochromasia (manual) Anisocytosis (manual) PT (10.0-12.5) sec INR (<1.2) APTT (22.0-30.0) sec Sodium (137-145) mmol/L Potassium (3.5-5.1) mmol/L Chloride (98-107) mmol/L Carbon Dioxide (22-30) mmol/L Anion Gap mmol/L BUN (9-20) mg/dL Creatinine (0.66-1.25) mg/dL Est GFR (CKD-EPI)AfAm (>60 ml/min/1.73 sqM) Est GFR (CKD-EPI)NonAf (>60 ml/min/1.73 sqM) Glucose (74-99) mg/dL Calcium (8.4-10.2) mg/dL Magnesium (1.6-2.3) mg/dL Total Bilirubin (0.2-1.3) mg/dL AST (17-59) U/L ALT (4-49) U/L Alkaline Phosphatase (38-126) U/L Troponin I <0.012 (0.000-0.034) ng/mL Total Protein (6.3-8.2) g/dL Albumin (3.5-5.0) g/dL Stool Occult Blood (Negative) Blood Type Blood Type Confirm Blood Type Recheck Bld Type Recheck Status Antibody Screen Crossmatch Spec Expiration Date Disposition Clinical Impression: Anemia Disposition: ADMITTED IP TO THIS [facility] Condition: Stable Is patient prescribed a controlled substance at d/c from ED?: No Referrals: None,Stated [Primary Care Provider] - 1-2 days Time of Disposition: 11:38 Decision to Admit Reason: Admit from EC Decision Date: 06/18/25 Decision Time: 11:38
[2025-06-18 10:14] LABS: ALT 20 U/L (4-49); AST 37 U/L (17-59); African American GFR (CKD) 76 (>60 ml/min/1.73 sqM); Albumin 3.8 g/dL (3.5-5.0); Alkaline Phosphatase 90 U/L (38-126); Anion Gap 9 mmol/L; Blood Urea Nitrogen 21 mg/dL (9-20); Calcium 9.4 mg/dL (8.4-10.2); Carbon Dioxide 24 mmol/L (22-30); Chloride 98 mmol/L (98-107); Glucose 107 mg/dL (74-99); Magnesium 1.6 mg/dL (1.6-2.3); Non-African American GFR(CKD) 65 (>60 ml/min/1.73 sqM); Potassium 4.7 mmol/L (3.5-5.1); Sodium 131 mmol/L (137-145); Total Protein 6.6 g/dL (6.3-8.2)
[2025-06-18 10:57] LABS: Anisocytosis (M) Present; Hypochromasia (M) Present
[2025-06-18] MEDS ORDERED: NALOXONE 0.4 MG/ML 1 ML VIAL IV PRN (11:40)
--- NOTE | 2025-06-18 15:22 | P.HPIM ---
History of Present Illness H&P Date: 06/18/25 Patient is a 69-year-old male with persistent atrial fibrillation anticoagulated on Xarelto, hyperlipidemia, hypertension presenting with fatigue and abnormal lab values with a hemoglobin of 5.9. Patient was with cardiology for cardiac catheterization. He had laboratory testing done today which showed low hemoglobin value was advised to go to the emergency department. He admits to feeling fatigued over the past few weeks. States he has had a history of iron deficiency but never took any medication for it. He admitted to having darker stools a few weeks ago but none recently. Denies any hematochezia, hematemesis. Patient denies any chest pain, abdominal pain, hematuria. Says he had a c olonoscopy around 10 years ago and states that it was normal was states that he may be due for one. EKG independently interpreted displaying sinus bradycardia with first-degree AV block Troponin < 0.012, Hgb 5.9, HCT 19.0, MCV 73.3, sodium 131, BUN 21, creatinine 1.13, iron studies pending Stool occult blood negative T 98.1 F, VT 59, RR 18, BP 135/63, O2 saturation 98% on room air ED documentation reviewed and case discussed with ED provider. Review of systems: Pertinent positives and negatives as discussed in HPI, a complete review of systems was performed and all other systems are negative. Physical examination: Vital signs reviewed General: non toxic, no distress, appears at stated age, normal weight Derm: no unusual rashes/lesions, warm Head: atraumatic, normocephalic, symmetric Eyes: EOMI, anicteric sclera, pupils equal round reactive to light Cardiovascular: S1S2 reg, no murmur, positive dorsalis pedis pulse bilateral, no edema Lungs: CTA bilateral, no rhonchi, no rales, no accessory muscle use Abdominal: soft, nontender to palpation, no guarding Ext: muscle strength 5 out of 5 in all 4 extremities grossly Neuro: CN II-XI grossly intact, no gross focal neuro deficits Psych: Alert, oriented to person, place, and time Assessment/Plan: Patient is a 69-year-old male with persistent atrial fibrillation anti- coagulated on Xarelto, hyperlipidemia, hypertension presenting with abnormal lab values significant for severe anemia with a hemoglobin of 5.9 #. Symptomatic anemia Patient receiving 1 unit PRBC in the ED No signs of acute bleeding, monitor CBC, transfuse if Hgb < 7.0 Hgb 5.9, HCT 19.2 Iron studies pending LDH, haptoglobin, reticulocyte count pending B12 and folate pending Hematology was consulted #. Persistent atrial fibrillation anticoagulated on Xarelto #. First-degree AV block Continue Xarelto 20 mg daily Continue metoprolol 50 mg twice daily and flecainide 50 mg p.o. twice daily Cardiac telemetry Cardiology was consulted #. Mild euvolemic hyponatremia TSH, cortisol ordered Serum osmolarity, urine osmolarity, urine sodium ordered Fluid restrict for now Chronic: Hypertension: Continue lisinopril 20 mg daily, hold HCTZ F: N/A E: Replete electrolytes as needed N: Heart healthy diet A: Independently ambulatory DVT prophylaxis: Xarelto 20 mg daily The patient is admitted with an anticipated greater than 2 midnight stay for evaluation of acute severe anemia. CODE STATUS: Full code Discussed with: The patient Anticipated discharge place: Pending clinical course Rama Plascencia MD PGY-2 IM Dictation was produced using [employer] dictation software. please excuse any grammatical, word or spelling errors. I have seen and evaluated the patient today. Discussed with the resident and agree with the residents finding and plan as documented in the resident's note. Changes highlighted in blue font. Past Medical History Past Medical History: Atrial Fibrillation, GERD/Reflux, Hyperlipidemia, Hypertension Additional Past Medical History / Comment(s): SEE DR JACKSON'S H&P History of Any Multi-Drug Resistant Organisms: None Reported Past Surgical History: Heart Catheterization, Orthopedic Surgery Additional Past Surgical History / Comment(s): "Hiatal hernia balloon procedure." Right shoulder surgery. Cardioversion March 2025 Past Anesthesia/Blood Transfusion Reactions: No Reported Reaction Additional Past Anesthesia/Blood Transfusion Reaction / Comment(s): No hx of blood transfusion Past Psychological History: No Psychological Hx Reported Smoking Status: Never smoker Past Alcohol Use History: None Reported Past Drug Use History: None Reported - Past Family History Father Family Medical History: Cancer Additional Family Medical History / Comment(s): Lung Cancer. Medications and Allergies Home Medications Medication Instructions Recorded Confirmed Type Atorvastatin [Lipitor] 40 mg PO DAILY 07/25/19 06/18/25 History Lisinopril-Hctz 20-25 mg 1 tab PO DAILY 07/25/19 06/18/25 History [Zestoretic -25] Omeprazole 20 mg PO DAILY 07/25/19 06/18/25 History Rivaroxaban [Xarelto] 20 mg PO HS 07/25/19 06/18/25 History Metoprolol Succinate [Metoprolol 25 mg PO DAILY 06/16/25 06/18/25 History Succinate ER] Aspirin 81 mg PO ONCE 06/18/25 06/18/25 History Flecainide Acetate [Tambocor] 50 mg PO BID 06/18/25 06/18/25 History Ubidecarenone [Coenzyme Q10] 200 mg PO DAILY 06/18/25 06/18/25 History Allergies Allergy/AdvReac Type Severity Reaction Status Date / Time No Known Allergies Allergy Verified 06/18/25 11:18 Physical Exam Vitals: Vital Signs Temp Pulse Pulse Resp BP Pulse Ox 06/18/25 11:53 98.1 F 58 L 18 135/69 98 06/18/25 11:33 98.2 F 60 20 131/68 97 06/18/25 11:22 98.2 F 59 L 20 134/65 98 06/18/25 09:40 59 L 06/18/25 09:07 98.1 F 59 L 18 135/63 98 Intake and Output 06/17/25 06/18/25 06/18/25 22:59 06:59 14:59 Intake Total 0 Balance 0 Intake: Blood Product 0 Unit 0 Other: Weight 122.47 kg Results CBC & Chem 7: 06/18/25 15:22 06/18/25 09:37 Labs: Abnormal Lab Results - Last 24 Hours (Table) 06/18/25 06/18/25 06/18/25 Range/Units 09:10 09:37 09:37 RBC 2.62 L (4.40-5.60) 10*6/uL Hgb 5.9 L* (13.0-17.0) g/dL Hct 19.2 L* (39.6-50.0) % MCV 73.3 L (80.0-97.0) fL MCH 22.5 L (27.0-32.0) pg MCHC 30.7 L (32.0-37.0) g/dL MPV 8.3 L (9.5-12.2) fL Sodium 131 L (137-145) mmol/L BUN 21 H (9-20) mg/dL Glucose 107 H (74-99) mg/dL Crossmatch See Detail
[2025-06-18 15:42] LABS: Basophils # (A) 0.08 10*3/uL (0.00-0.10); Basophils % (A) 0.9 %; Eosinophils # (A) 0.23 10*3/uL (0.04-0.35); Eosinophils % (A) 2.7 %; HCT 22.1 % (39.6-50.0); Lymphocytes # (A) 2.02 10*3/uL (0.90-5.00); Lymphocytes % (A) 23.8 %; MCH 23.0 pg (27.0-32.0); MCHC 30.3 g/dL (32.0-37.0); MCV 75.9 fL (80.0-97.0); Monocytes # (A) 0.80 10*3/uL (0.20-1.00); Monocytes % (A) 9.4 %; Neutrophils # (A) 5.35 10*3/uL (1.80-7.70); Neutrophils % (A) 63.0 %; Platelet Count 385 10*3/uL (140-440); RBC 2.91 10*6/uL (4.40-5.60); RDW 17.2 % (11.5-14.5); WBC 8.50 10*3/uL (4.50-10.00)
[2025-06-18 15:50] LABS: HGB 6.7 g/dL (13.0-17.0)
[2025-06-18 16:12] LABS: Iron 22 UG/DL (65-175); Total Iron Binding Capacity 463 UG/DL (228-460)
[2025-06-18] MEDS: RIVAROXABAN 20 MG TAB PO SCH (20:04)
[2025-06-18] MEDS: FLECAINIDE 50 MG TAB PO SCH (20:05)
[2025-06-18 21:58] LABS: LDH 162.0 U/L (120-246); Vitamin B12 666.0 pg/mL (200.0-944.0)
[2025-06-19 02:00] LABS: Basophils # (A) 0.07 10*3/uL (0.00-0.10); Basophils % (A) 0.8 %; Eosinophils # (A) 0.26 10*3/uL (0.04-0.35); Eosinophils % (A) 2.8 %; HCT 24.9 % (39.6-50.0); HGB 7.7 g/dL (13.0-17.0); Lymphocytes # (A) 1.61 10*3/uL (0.90-5.00); Lymphocytes % (A) 17.3 %; MCH 23.9 pg (27.0-32.0); MCHC 30.9 g/dL (32.0-37.0); MCV 77.3 fL (80.0-97.0); Monocytes # (A) 0.71 10*3/uL (0.20-1.00); Monocytes % (A) 7.6 %; Neutrophils # (A) 6.65 10*3/uL (1.80-7.70); Neutrophils % (A) 71.2 %; Platelet Count 388 10*3/uL (140-440); RBC 3.22 10*6/uL (4.40-5.60); RDW 17.7 % (11.5-14.5); WBC 9.33 10*3/uL (4.50-10.00)
[2025-06-19] MEDS: PANTOPRAZOLE 40 MG TABLET PO SCH (05:30)
[2025-06-19 06:55] LABS: Basophils # (A) 0.07 10*3/uL (0.00-0.10); Basophils % (A) 0.8 %; Eosinophils # (A) 0.22 10*3/uL (0.04-0.35); Eosinophils % (A) 2.5 %; HCT 26.5 % (39.6-50.0); HGB 8.2 g/dL (13.0-17.0); Lymphocytes # (A) 1.55 10*3/uL (0.90-5.00); Lymphocytes % (A) 17.6 %; MCH 23.8 pg (27.0-32.0); MCHC 30.9 g/dL (32.0-37.0); MCV 77.0 fL (80.0-97.0); Monocytes # (A) 0.69 10*3/uL (0.20-1.00); Monocytes % (A) 7.8 %; Neutrophils # (A) 6.26 10*3/uL (1.80-7.70); Neutrophils % (A) 71.1 %; Platelet Count 420 10*3/uL (140-440); RBC 3.44 10*6/uL (4.40-5.60); RDW 17.8 % (11.5-14.5); WBC 8.81 10*3/uL (4.50-10.00)
[2025-06-19 07:08] LABS: African American GFR (CKD) >90 (>60 ml/min/1.73 sqM); Anion Gap 10 mmol/L; Blood Urea Nitrogen 16 mg/dL (9-20); Calcium 9.4 mg/dL (8.4-10.2); Carbon Dioxide 25 mmol/L (22-30); Chloride 101 mmol/L (98-107); Glucose 103 mg/dL (74-99); Non-African American GFR(CKD) 80 (>60 ml/min/1.73 sqM); Potassium 4.7 mmol/L (3.5-5.1); Sodium 136 mmol/L (137-145)
[2025-06-19 08:03] VITALS: BP 145/81; RESP 16; TEMP 97.8
[2025-06-19] MEDS: ATORVASTATIN 40 MG TAB PO SCH (08:04)
[2025-06-19] MEDS: METOPROLOL SUCCINATE (ER) 25 MG TAB.ER.24H PO SCH (08:04)
[2025-06-19 08:11] VITALS: PULSE 67
[2025-06-19] MEDS: SODIUM FERRIC GLUCONAT-SUCROSE 125 MG in SODIUM CHLORIDE 0.9% 100 ML IVPB SCH (08:40)
[2025-06-19] MEDS ORDERED: NON FORMULARY DRUG (Ubidecarenone [Coenzyme Q10] 200 MG Capsule) PO SCH (09:00)
--- NOTE | 2025-06-19 12:01 | P.DS ---
Providers Date of admission: 06/18/25 11:40 Attending physician: Sharif Montero Consults: 06/18/25 11:40 Consult Physician Urgent Consulting Provider: [facility] Consult Reason/Comments: abn ekg Do you want consulting provider notified?: Yes Consult Physician Urgent Consulting Provider: Jefferson Beard Consult Reason/Comments: anemia Do you want consulting provider notified?: Yes Primary care physician: Stated None Hospital Course: Discharge Diagnosis: Iron deficiency anemia Persistent atrial fibrillation anticoagulated on Xarelto History of First-degree AV block Mild euvolemic hyponatremia Hypertension Hospital Course: Patient is a 69-year-old male with persistent atrial fibrillation anticoagulated on Xarelto, hyperlipidemia, hypertension presenting with fatigue and abnormal lab values with a hemoglobin of 5.9. Patient was with cardiology for cardiac catheterization. He had laboratory testing done today which showed low hemoglobin value was advised to go to the emergency department. He admits to feeling fatigued over the past few weeks. States he has had a history of iron deficiency but never took any medication for it. He admitted to having darker stools a few weeks ago but none recently. Denies any hematochezia, hematemesis. Patient denies any chest pain, abdominal pain, hematuria. Says he had a colonoscopy around 10 years ago and states that it was normal was states that he may be due for one. Patient received two units of pRBCs on 06/18. After the transfusion, the patient felt "less tired" with more energy. Hemoglobin improved from 5.9 to 7.7. No other new symptoms. Mild euvolemic hyponatremia was treated with fluid restriction. The EKG was interpreted to display sinus bradycardia with first- degree AV block. On discharge, patient is hemodynamically stable. Significant labs on discharge include Na 136, K 4.7, RBC 3.44, HCT 26.5, MCV 77 and Hgb 8.2 . Pt. mentions feeling much better today. Advised to come back to the ED if symptoms persist or worsen. Pt. was prescribed iron supplementation and vitamin C. Lisonpril-HCtz 20-25 mg was discontinued. Aspirin and Xarelto have been on hold until evaluated by GI. Patient is to follow-up with Dr. Underwood for a GI consultation of a recommended colonoscopy. Recommendations to follow-up and establish care with a PCP. Patient is being discharged home. Patient seen and examined at bedside. Vital signs reviewed and stable. Physical examination: Vital signs reviewed General: non toxic, no distress, appears at stated age, normal weight Derm: no unusual rashes/lesions, warm Head: atraumatic, normocephalic, symmetric Eyes: EOMI, anicteric sclera, pupils equal round reactive to light Cardiovascular: S1S2 reg, no murmur, positive dorsalis pedis pulse bilateral, no edema Lungs: CTA bilateral, no rhonchi, no rales, no accessory muscle use Abdominal: soft, nontender to palpation, no guarding Ext: muscle strength 5 out of 5 in all 4 extremities grossly Neuro: CN II-XI grossly intact, no gross focal neuro deficits Psych: Alert, oriented to person, place, and time A total of greater than 30 minutes of time were spent preparing this complex discharge summary. Patient was discharged on 06/19/2025. I saw and evaluated the patient during the erwin and critical portions of this encounter, and discussed the case in detail with the resident author of this note, I agree with the Assessment and Plan, and my changes, if any, are highlighted in blue. Patient Condition at Discharge: Stable Plan - Discharge Summary New Discharge Prescriptions: New lisinopriL [Zestril] 20 mg PO DAILY #30 tab Ferrous Sulfate [Iron (65 MG Elemental)] 325 mg PO DAILY #90 tab Ascorbic Acid [Vitamin C] 500 mg PO DAILY #90 tablet Continue Atorvastatin [Lipitor] 40 mg PO DAILY Omeprazole 20 mg PO DAILY Flecainide Acetate [Tambocor] 50 mg PO BID Metoprolol Succinate [Metoprolol Succinate ER] 25 mg PO DAILY Ubidecarenone [Coenzyme Q10] 200 mg PO DAILY Discontinued Rivaroxaban [Xarelto] 20 mg PO HS Lisinopril-Hctz 20-25 mg [Zestoretic 20-25] 1 tab PO DAILY Aspirin 81 mg PO ONCE Discharge Medication List Atorvastatin [Lipitor] 40 mg PO DAILY 07/25/19 [History] Omeprazole 20 mg PO DAILY 07/25/19 [History] Metoprolol Succinate [Metoprolol Succinate ER] 25 mg PO DAILY 06/16/25 [History] Flecainide Acetate [Tambocor] 50 mg PO BID 06/18/25 [History] Ubidecarenone [Coenzyme Q10] 200 mg PO DAILY 06/18/25 [History] Ascorbic Acid [Vitamin C] 500 mg PO DAILY #90 tablet 06/19/25 [Rx] Ferrous Sulfate [Iron (65 MG Elemental)] 325 mg PO DAILY #90 tab 06/19/25 [Rx] lisinopriL [Zestril] 20 mg PO DAILY #30 tab 06/19/25 [Rx] Follow up Appointment(s)/Referral(s): Mello Ray MD [STAFF PHYSICIAN] - 1 Week Pam Underwood MD [STAFF PHYSICIAN] - 1 Week (Office is closed for lunch, please call after to schedule a hospital follow up. ) [facility] [NON-STAFF] - 1-2 Days (Please call to schedule hopsital follow up. ) Patient Instructions/Handouts: Iron Deficiency Anemia (GEN) Activity/Diet/Wound Care/Special Instructions: Please follow up with PCP and GI. Discharge Disposition: HOME SELF-CARE
--- NOTE | 2025-06-19 12:31 | P.CRDCN ---
History of Present Illness History of present illness: HISTORY OF PRESENT ILLNESS: This is a 69-year-old male with a past medical history significant for atrial fibrillation, previous ablation, cardioversion, hypertension and hyperlipidemia. Patient follows in the office with Dr. Ray. We have been asked to see the patient in consultation for normal EKG. Patient examined at the bedside. Patient was supposed to undergo outpatient cardiac catheterization yesterday. However his hemoglobin was found to be 6.7 and his catheterization was canceled and he was directed to go to the emergency room. He reports very dark stools but denies black stools. Denies blood in his stool. DIAGNOSTICS: - EKG reveals sinus mechanism with first-degree AV block. No signs of acute ischemia. - Laboratory data: WBC 8.81. Hemoglobin 6.7. Repeat 8.2. Platelet count 420. Sodium 136. Potassium 4.7. BUN 16. Creatinine 0.96. - Current home cardiac medications include aspirin 81 mg daily, Xarelto 20 mg at night, metoprolol succinate 25 mg daily, flecainide 50 mg twice a day, lisinoprilhydrochlorothiazide 20-25 mg daily, and atorvastatin 40 mg daily. - Most recent echocardiogram obtained in January 2025 revealed ejection fraction 53%, mild to moderate MR, mild aortic stenosis, mildly elevated PA pressures - Patient underwent cardioversion with conversion to sinus mechanism on 04/13/2025 - Patient underwent Lexiscan stress test in January 2025 revealing EF 55%, small apical fixed defect probable normal variant. Mild diaphragmatic attenuation. No ischemia. -Patient underwent treadmill stress test in 05/2025. Patient only walked 3 minutes and had symptoms of SOB and fatigue with ST depression. - Cardiac catheterization history: 2019 revealing right dominant system. Calcified coronary arteries with 30 to 40% narrowing. No significant disease. LVEDP 14 mmHg. REVIEW OF SYSTEMS: At the time of my exam: CONSTITUTIONAL: Denies fever or chills. HEENT: Denies blurred vision, vision changes, or eye pain. Denies hemoptysis CARDIOVASCULAR: Denies chest pain. Denies orthopnea. Denies PND. Denies palpitations RESPIRATORY: Denies shortness of breath. GASTROINTESTINAL: Denies abdominal pain. Denies nausea or vomiting. HEMATOLOGIC: Denies bleeding disorders. GENITOURINARY: Denies any blood in urine. SKIN: Denies pruitis. Denies rash. PHYSICAL EXAM: VITAL SIGNS: Reviewed. GENERAL: Well-developed in no acute distress. HEENT: Head is normocephalic. Pupils are equal, round. Sclerae anicteric. Mucous membranes of the mouth are moist. Neck supple. No JVD or thyromegaly LUNGS: Respirations even and unlabored. Lungs essentially clear to auscultation bilaterally. HEART: Regular rate and rhythm. S1 and S2 heard. ABDOMEN: Soft. Nondistended. Nontender. EXTREMITIES: Normal range of motion. No clubbing or cyanosis. Peripheral pulse s intact. No lower extremity edema NEUROLOGIC: Awake and alert. Oriented x 3. ASSESSMENT: Anemia, hemoglobin 6.7, status post 2 unit RBC Paroxysmal atrial fibrillation, currently maintaining sinus mechanism History of cardioversion, 04/13/2025 Mild nonobstructive CAD History of A-fib ablation, 2021 Hypertension Hyperlipidemia History of hiatal hernia PLAN: No need to repeat echocardiogram as this was performed in January 2025 Recommend holding Xarelto temporarily until evaluated by GI on an outpatient basis. Discontinue aspirin. Continue additional home cardiac medications Hematology has been consulted for evaluation of anemia Consider eventual Watchman if unable to tolerate senior living anticoagulation Further recommendations pending patient course Nurse practitioner note has been reviewed by physician. Signing provider agrees with the documented findings, assessment, and plan of care documented by [employer] WORKER as a scribe. Past Medical History Past Medical History: Atrial Fibrillation, GERD/Reflux, Hyperlipidemia, Hypertension Additional Past Medical History / Comment(s): anemia History of Any Multi-Drug Resistant Organisms: None Reported Past Surgical History: Heart Catheterization, Orthopedic Surgery Additional Past Surgical History / Comment(s): "Hiatal hernia balloon procedure." Right shoulder surgery. Cardioversion March 2025 Past Anesthesia/Blood Transfusion Reactions: No Reported Reaction Additional Past Anesthesia/Blood Transfusion Reaction / Comment(s): No hx of blood transfusion Past Psychological History: No Psychological Hx Reported Smoking Status: Never smoker Past Alcohol Use History: None Reported Additional Past Alcohol Use History / Comment(s): No alcohol in last 3 months. Past alcohol use-had 2 beers daily. Past Drug Use History: None Reported - Past Family History Father Family Medical History: Cancer Additional Family Medical History / Comment(s): Lung Cancer. Medications and Allergies Home Medications Medication Instructions Recorded Confirmed Type Atorvastatin [Lipitor] 40 mg PO DAILY 07/25/19 06/18/25 History Omeprazole 20 mg PO DAILY 07/25/19 06/18/25 History Rivaroxaban [Xarelto] 20 mg PO HS 07/25/19 06/18/25 History Metoprolol Succinate [Metoprolol 25 mg PO DAILY 06/16/25 06/18/25 History Succinate ER] Aspirin 81 mg PO ONCE 06/18/25 06/18/25 History Flecainide Acetate [Tambocor] 50 mg PO BID 06/18/25 06/18/25 History Ubidecarenone [Coenzyme Q10] 200 mg PO DAILY 06/18/25 06/18/25 History Ascorbic Acid [Vitamin C] 500 mg PO DAILY #90 tablet 06/19/25 Rx Ferrous Sulfate [Iron (65 MG 325 mg PO DAILY #90 tab 06/19/25 Rx Elemental)] lisinopriL [Zestril] 20 mg PO DAILY #30 tab 06/19/25 Rx Allergies Allergy/AdvReac Type Severity Reaction Status Date / Time No Known Allergies Allergy Verified 06/18/25 11:18 Physical Exam Vitals: Vital Signs Temp Pulse Pulse Resp BP BP Pulse Ox 06/19/25 08:06 67 06/19/25 08:00 97.8 F 98 16 145/81 98 06/19/25 04:08 98.6 F 70 17 134/74 96 06/18/25 22:53 98.0 F 64 17 145/77 98 06/18/25 21:30 97.9 F 61 16 138/79 98 06/18/25 19:27 97.7 F 64 17 143/81 99 06/18/25 18:37 52 L 16 135/73 97 06/18/25 18:17 57 L 15 149/79 97 06/18/25 18:15 52 L 15 149/79 97 06/18/25 18:08 97.9 F 53 L 17 163/74 98 06/18/25 18:06 97.9 F 53 L 17 163/74 98 06/18/25 17:42 17 06/18/25 17:39 55 L 18 154/65 95 06/18/25 16:04 53 L 17 148/79 98 06/18/25 13:35 56 L 16 138/74 98 06/18/25 13:33 98.0 F 56 L 18 138/79 98 06/18/25 11:53 98.1 F 58 L 18 135/69 98 06/18/25 11:33 98.2 F 60 20 131/68 97 06/18/25 11:22 98.2 F 59 L 20 134/65 98 06/18/25 09:40 59 L 06/18/25 09:07 98.1 F 59 L 18 135/63 98 Intake and Output 06/18/25 06/19/25 06/19/25 22:59 06:59 14:59 Intake Total 310 Output Total 400 800 Balance - -800 Intake: Blood Product 310 Rc As-1 Unit 310 [id number] Output: Urine 400 800 Other: Voiding Method Toilet Toilet Urinal Urinal Weight 122.47 kg 120.2 kg Results 06/19/25 05:50 06/19/25 05:50 Cardiac Enzymes 06/18/25 06/18/25 06/18/25 Range/Units 09:37 09:37 15:13 AST 37 (17-59) U/L Lactate Dehydrogenase 162 (120-246) U/L Troponin I <0.012 (0.000-0.034) ng/mL Coagulation 06/18/25 Range/Units 09:37 PT 10.5 (10.0-12.5) sec APTT 22.1 (22.0-30.0) sec CBC 06/18/25 06/18/25 06/19/25 Range/Units 09:37 15:22 01:37 WBC 8.28 8.50 9.33 (4.50-10.00) 10*3/uL RBC 2.62 L 2.91 L 3.22 L (4.40-5.60) 10*6/uL Hgb 5.9 L* 6.7 L* 7.7 L (13.0-17.0) g/dL Hct 19.2 L* 22.1 L 24.9 L (39.6-50.0) % Plt Count 373 385 388 (140-440) 10*3/uL 06/19/25 Range/Units 05:50 WBC 8.81 (4.50-10.00) 10*3/uL RBC 3.44 L (4.40-5.60) 10*6/uL Hgb 8.2 L (13.0-17.0) g/dL Hct 26.5 L (39.6-50.0) % Plt Count 420 (140-440) 10*3/uL Comprehensive Metabolic Panel 06/18/25 06/19/25 Range/Units 09:37 05:50 Sodium 131 L 136 L (137-145) mmol/L Potassium 4.7 4.7 (3.5-5.1) mmol/L Chloride 98 101 (98-107) mmol/L Carbon Dioxide 24 25 (22-30) mmol/L BUN 21 H 16 (9-20) mg/dL Creatinine 1.13 0.96 (0.66-1.25) mg/dL Glucose 107 H 103 H (74-99) mg/dL Calcium 9.4 9.4 (8.4-10.2) mg/dL AST 37 (17-59) U/L ALT 20 (4-49) U/L Alkaline Phosphatase 90 (38-126) U/L Total Protein 6.6 (6.3-8.2) g/dL Albumin 3.8 (3.5-5.0) g/dL Current Medications Generic Name Dose Route Start Last Admin Trade Name Freq PRN Reason Stop Dose Admin Atorvastatin Calcium 40 mg 06/19/25 09:00 06/19/25 08:04 Atorvastatin 40 Mg Tab PO 40 mg DAILY LUBNA Administration Flecainide Acetate 50 mg 06/18/25 21:00 06/19/25 08:04 Flecainide 50 Mg Tab PO 50 mg BID LUBNA Administration Ferric Sodium Gluconate 125 mg 110 mls @ 100 mls/hr 06/19/25 09:00 06/19/25 08:40 / Sodium Chloride IVPB 100 mls/hr DAILY LUBNA Administration Lisinopril 20 mg 06/19/25 09:00 06/19/25 08:04 Lisinopril 20 Mg Tab PO 20 mg DAILY LUBNA Administration Metoprolol Succinate 25 mg 06/19/25 09:00 06/19/25 08:04 Metoprolol Succinate (Er) 25 Mg Tab.Er.24h PO 25 mg DAILY LUBNA Administration Naloxone HCl 0.2 mg 06/18/25 11:40 Naloxone 0.4 Mg/Ml 1 Ml Vial IV Q2M PRN Opioid Reversal Pantoprazole Sodium 40 mg 06/19/25 07:30 06/19/25 05:30 Pantoprazole 40 Mg Tablet PO 40 mg [id number] LUBNA Administration Rivaroxaban 20 mg 06/18/25 21:00 06/18/25 20:04 Rivaroxaban 20 Mg Tab PO Not Given [facility] Protocol Intake and Output 06/18/25 06/19/25 06/19/25 22:59 06:59 14:59 Intake Total 310 Output Total 400 800 Balance -90 -800 Intake: Blood Product 310 Rc As-1 Unit 310 [id number] Output: Urine 400 800 Other: Voiding Method Toilet Toilet Urinal Urinal Weight 122.47 kg 120.2 kg 06/19/25 05:50 06/19/25 05:50
[2025-06-19] MEDS ORDERED: PANTOPRAZOLE 40 MG TABLET PO SCH (17:30)
== END 2025-06-19 13:02 | disposition home or self-care (01) | DRG 812 ==
LOC: EC 08:56 → 1SOBS 11:40 → 5NMEDONC 13:11 → 3SCARD 14:30
PROVIDERS: ADMIT Student in an Organized Health Care Education/Training Program; ATTEND Student in an Organized Health Care Education/Training Program
PROC: 30233N1 Transfusion of Nonautologous Red Blood Cells into Peripheral Vein, Percutaneous Approach (ICD-10-PCS; principal; 2025-06-18)
DX: D50.9 Iron deficiency anemia, unspecified (principal); E87.1 Hypo-osmolality and hyponatremia; I10 Essential (primary) hypertension; I48.19 Other persistent atrial fibrillation; R19.5 Other fecal abnormalities; K21.9 Gastro-esophageal reflux disease without esophagitis; Z79.899 Other long term (current) drug therapy; R00.1 Bradycardia, unspecified; E78.5 Hyperlipidemia, unspecified; I25.10 Atherosclerotic heart disease of native coronary artery without angina pectoris; I44.0 Atrioventricular block, first degree; Z79.01 Long term (current) use of anticoagulants; Z53.09 Procedure and treatment not carried out because of other contraindication; Z79.82 Long term (current) use of aspirin
CPT/HCPCS: 36415; 36430; 80048; 80053; 82272; 82533; 82607; 82728; 82747; 83010; 83540; 83550; 83615; 83735; 83930; 83935; 84300; 84443; 84484; 85025; 85045; 85610; 85730; 86850; 86900; 86901; 86920; 99284

== ENCOUNTER → 2025-06-18 | Day surgery (SDC) | payer MEDICARE, BC ==
[2025-06-15 16:01] VITALS: BMI 32.8
[~2025-06-18] MED LIST changes: +ALPRAZolam 0.25 MG TAB PO PRN; +ALPRAZolam 0.5 MG TAB PO PRN; +HEPARIN SODIUM,PORCINE (1 ML) 2,500 UNIT in SODIUM CHLORIDE 0.9% 250 ML IRRIGATION PRN; +HEPARIN SODIUM,PORCINE 10,000 UNIT in SODIUM CHLORIDE 0.9% 1,000 ML IRRIGATION PRN; -LACTATED RINGERS 1,000 ML IV SCH; +NITROGLYCERIN SL TABS 0.4 MG TAB SUBLINGUAL PRN
[2025-06-18 07:45] VITALS: BP 133/59; PULSE 67; RESP 16; TEMP 98.4
[2025-06-18] MEDS: SODIUM CHLORIDE 0.9% 1,000 ML in EMPTY BAG 1 BAG IV SCH (08:01)
[2025-06-18 08:02] LABS: Basophils # (A) 0.06 10*3/uL (0.00-0.10); Basophils % (A) 0.7 %; Eosinophils # (A) 0.22 10*3/uL (0.04-0.35); Eosinophils % (A) 2.5 %; Lymphocytes # (A) 2.15 10*3/uL (0.90-5.00); Lymphocytes % (A) 24.7 %; MCH 22.3 pg (27.0-32.0); MCHC 30.7 g/dL (32.0-37.0); MCV 72.6 fL (80.0-97.0); Monocytes # (A) 0.78 10*3/uL (0.20-1.00); Monocytes % (A) 9.0 %; Neutrophils # (A) 5.45 10*3/uL (1.80-7.70); Neutrophils % (A) 62.6 %; Platelet Count 402 10*3/uL (140-440); RBC 2.74 10*6/uL (4.40-5.60); RDW 16.7 % (11.5-14.5); WBC 8.70 10*3/uL (4.50-10.00)
[2025-06-18] MEDS: ASPIRIN 325 MG TAB PO STA (08:05)
[2025-06-18 08:06] LABS: HCT 19.9 % (39.6-50.0); HGB 6.1 g/dL (13.0-17.0)
[2025-06-18 08:31] LABS: African American GFR (CKD) 71 (>60 ml/min/1.73 sqM); Anion Gap 12 mmol/L; Blood Urea Nitrogen 22 mg/dL (9-20); Calcium 9.5 mg/dL (8.4-10.2); Carbon Dioxide 23 mmol/L (22-30); Chloride 96 mmol/L (98-107); Glucose 110 mg/dL (74-99); Non-African American GFR(CKD) 62 (>60 ml/min/1.73 sqM); Potassium 4.6 mmol/L (3.5-5.1); Sodium 131 mmol/L (137-145)
[2025-06-18] MEDS: IV FLUID CONTINUATION 1,000 ML IV ONE (08:35)
== END ==
LOC: CATHCVL 07:16
PROVIDERS: ATTEND Internal Medicine
DX: Z53.8 Procedure and treatment not carried out for other reasons (principal); I48.19 Other persistent atrial fibrillation; I44.0 Atrioventricular block, first degree; I49.5 Sick sinus syndrome; E78.5 Hyperlipidemia, unspecified; I10 Essential (primary) hypertension; Z79.899 Other long term (current) drug therapy
CPT/HCPCS: 80048; 85025